=== PATIENT | female | born 1990 | race Hispanic/Latino ===

== ENCOUNTER 2016-09-26 11:24 | Inpatient (IN) | payer OTHER ==
[2016-09-26] VITALS (10 sets, daily range): BP systolic 123–145; BP diastolic 66–83
[~2016-09-26] VITALS: Ht 157.5 cm; Wt 90.0 kg
[2016-09-26] MEDS ORDERED: PRENTAB9 PO (11:41)
--- NOTE | 2016-09-26 14:02 | HPEPDOC ---
Obstetrical History & Physical General Date of Admission Sep 26, 2016 at 11:24 History of Present Illness 25 y/o at 41+0 by LMP and 20 wk US for IOL due to pending postdates. No LOF/VB. Pos FM. Irreg ctx's. Problem list: Velamentous cord insertion, had a 28 wk scan in addition to her anatomy scan that was normal Transferred here at 19 wks from [place]. 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 Past Medical History Medical History denies Surgical History: Denies/None Family History Significant Family History: No pertinent family hx Social History Marital Status: Family situation: Spouse/partner home * Smoker: non-smoker Alcohol: Denies Drugs: denies Abuse Violence Screening Have you been hit/kicked/slapp: No Have you been sexually assault: No Imunizations Tdap status: current Influenza Status: current Allergies Coded Allergies: No Known Allergies (Unverified , 09/26/16) Medications Scheduled Multivitamins/ ( 27-0.8 mg) 1 Tab Tab, 1 TAB PO DAILY Physical Examination Physical Examination GENERAL: Alert and oriented times three. ABDOMEN: Gravid and non-tender to touch. FETUS: Is vertex (VTX) by Laron and cnofirmed by limited TAUS. EXTREMITIES: No edema. Vital Signs/I&O Vital Signs Date Time Temp Pulse Resp B/P (MAP) Pulse Ox O2 Delivery O2 Flow Rate FiO2 09/26/16 11:52 98.7 120 18 145/82 (103) Laboratory Data 24H LABS Laboratory Tests 2 09/26/16 11:44: Serology Scanned Report Hepatitis B Testing Urine Culture: No Growth Pertinent Laboratoy Data Blood Type: A+ RBC Antibody Screen: Negative HIV: Negative Hepatitis B: Negative Hepatitis C: Unknown Rapid Plasma Reagin: Nonreactive Rubella: Nonreactive Varicella: Nonreactive Chlamydia/Gonorrhea: Negative Group B Streptococcus: Negative Quad Screen Test: Negative Cystic Fibrosis: Negative Glucose Tolerance Test: 161 (neg 3 hr GTT) Anatomy Ultrasound Placenta Location: Posterior Normal Anatomy: Yes Placenta Previa: No Vaginal Examination Dilation: Fingertip Effacement: 40-50% Station: -5 Cervical Consistency: Medium Cervical Position: Posterior Presentation: Cephalic presentation (by ultrasound) Assessment Variability: Moderate Accelerations: Positive Decelerations: None Tocometer Frequency: irregular Assessment/Plan Assessment 41 weeks. Baby not in the pelvis but vtx by US. Plan Admit and orient. Inside Sales Assistant and consent. Diet one meal and then clears Will start IOL with q4 hrs oral cytotec 50 mcg per SOP. Group B Streptococcus (GBS) neg Labs and intravenous (IV) per unit protocol. Counseled on Pitocin and induction of labor (IOL). Lactated Ringers (LR): 125 mL/hr. Anticipate normal spontaneous delivery () C-S as appropriate, knows her risk for this is higher than average Sessions SESSIONS,GABBY Shaw MD Sep 26, 2016 14:02
[2016-09-26] MEDS: miSOPROStol 50 MCG 1/2 TAB (S0191) PO PRN ×2 (14:53→19:35)
[2016-09-26 14:55] LABS: MEAN CORPUSCULAR HEMOGLOBIN 31.3 pg (27.0-33.0); MEAN CORPUSCULAR HGB CONC 34.3 g/dl (32.0-36.5); MEAN CORPUSCULAR VOLUME 91.5 fl (80.0-96.0); RED CELL DISTRIBUTION WIDTH 13.3 % (11.5-14.5); WHITE BLOOD COUNT 9.1 K/mm3 (4.0-10.0)
[2016-09-26] MEDS: LR 1,000 ML IV SCH ×2 (20:07→21:44)
[2016-09-27] VITALS (15 sets, daily range): BP systolic 117–139; BP diastolic 63–87
[2016-09-27] MEDS: miSOPROStol 50 MCG 1/2 TAB (S0191) PO PRN (00:03)
--- NOTE | 2016-09-27 03:23 | IPNPDOC ---
Text Note Date of Service The patient was seen on 09/27/16. NOTE No w s/p 3 doses cytotec, last at DC. NST is mostly Cat 2, mod isa and accels, rare isolated decel noted. Ctx's reg, sometimes 2-3 min long Cx 1/80/-2/vtx well applied. Cook balloon FB placed, 60 Ut/40 vag cc's a/p: Doing well. Recheck 1-2 hrs after FB falls out. Sessions VS,Kavita, I+O VSKavita I+O Laboratory Tests 09/26/16 14:42 Red Blood Count 3.63 L, Mean Corpuscular Volume 91.5, Mean Corpuscular Hemoglobin 31.3, Mean Corpuscular Hemoglobin Concent 34.3, Red Cell Distribution Width 13.3 Vital Signs Date Time Temp Pulse Resp B/P (MAP) Pulse Ox O2 Delivery O2 Flow Rate FiO2 09/27/16 02:15 97.5 93 16 120/65 (83) I&O- Last 24 Hours up to 6 AM 09/27/16 06:00 Intake Total 2014 ml Balance 2014 ml SESSIONS,GABBY Shaw MD Sep 27, 2016 03:23
[2016-09-27] MEDS: LR 1,000 ML IV SCH ×5 (05:44→21:10)
[2016-09-27] MEDS: PRENATAL VITAMIN TAB PO SCH (09:00)
[2016-09-27] MEDS ORDERED: BICITRA 30ML SOLN UDC As Ordered ONE (13:46)
[2016-09-27] MEDS ORDERED: ceFAZolin 2 GM/D5W 50 ML IV BAG (J0690) As Ordered ONE (13:46)
[2016-09-27] MEDS ORDERED: BICITRA 30ML SOLN UDC PO ONE (14:00)
--- NOTE | 2016-09-27 14:00 | IPNPDOC ---
Text Note Date of Service The patient was seen on 09/27/16. NOTE Paulina is a 25y/o at 41+1 by LMP and 20 wk US admitted for IOL secondary to late term gestation. After admission she was given 3 doses of cytotec. This morning, a cook burns catheter was placed. Patient was uncomfortable so catheter deflated this afternoon to assess for cervical dilation. At that time, there was no presenting part palpable, nor was the cervix able to be felt. So TAUS was performed which showed oblique lie. ASIA Coles and I attempted a gentle ECV to get the head from maternal LLQ to vertex over the cervix, but we were not able to. Re-check of cervix again confirmed no presenting part palpable and cervix could not be felt. At that time I counseled Paulina that continuing the induction with oblique lie would likely result in arrest of dilation and be unsuccessful on the better end of the spectrum, on the other end of the spectrum she could have ROM at some point with cord prolapse which would then require emergency . We discussed performing a planned PLTCS. After giving her time to discuss with her , she elected to proceed with . OR team notified. Bicitra and 2g IV anceph ordered. Consent form signed by patient and me. All questions answered to her apparent satisfaction. Dr. Otto Perez MD [place], I+O VSKavita, I+O Laboratory Tests 09/26/16 14:42 Red Blood Count 3.63 L, Mean Corpuscular Volume 91.5, Mean Corpuscular Hemoglobin 31.3, Mean Corpuscular Hemoglobin Concent 34.3, Red Cell Distribution Width 13.3 Vital Signs Date Time Temp Pulse Resp B/P (MAP) Pulse Ox O2 Delivery O2 Flow Rate FiO2 09/27/16 08:33 100 18 135/82 (99) 09/27/16 07:37 98.9 I&O- Last 24 Hours up to 6 AM 09/27/16 06:00 Intake Total 2515 ml Balance 2515 ml OTTO PEREZ MD Sep 27, 2016 14:00
[2016-09-27] MEDS ORDERED: MORPHINE PRES-FREE INJ 10 MG/10 ML VIAL (J2274) As Ordered ONE (14:01)
[2016-09-27] MEDS ORDERED: OXYTOCIN INJ 10 UNITS/ML VIAL (J2590) As Ordered ONE (14:01)
[2016-09-27] MEDS ORDERED: NALBUPHINE HCL 10 MG/ML AMP (J2300) IV PRN (14:18)
[2016-09-27] MEDS ORDERED: NALOXONE INJ 0.4 MG/1 ML VIAL (J2310) IV PRN ×2 (14:18)
[2016-09-27] MEDS ORDERED: METOCLOPRAMIDE INJ 10MG/2ML VIAL (J2765) IV PRN (14:18)
[2016-09-27] MEDS ORDERED: ONDANSETRON 4MG/2ML VIAL (J2405) IV PRN ×2 (14:18→16:00)
[2016-09-27] MEDS ORDERED: PHENYLephrine HCL 500 MCG/5 ML (100MCG/ML) SYRINGE (J2370) As Ordered ONE (15:05)
[2016-09-27] MEDS ORDERED: dexameTHASONE 4 MG/ML 1ML VIAL (J1100) As Ordered ONE (15:05)
[2016-09-27] MEDS ORDERED: KETOROLAC 60 MG/2 ML VIAL (J1885) As Ordered ONE (15:28)
[2016-09-27] MEDS ORDERED: ONDANSETRON 4MG/2ML VIAL (J2405) As Ordered ONE (15:28)
[2016-09-27] MEDS ORDERED: RHOGAM 300 MCG (1500 IU) INJ (J2790) IM SCH (16:00)
[2016-09-27] MEDS ORDERED: fentaNYL 100 MCG/2 ML INJECTION (J3010) IV PRN (16:00)
[2016-09-27] MEDS ORDERED: PERCOCET 5MG/325MG TAB PO PRN ×3 (16:00)
[2016-09-27] MEDS ORDERED: MEASLES,MUMPS,RUBELLA VACCINE INJ (MMR-II) (90707) SC SCH (16:00)
[2016-09-27] MEDS: DOCUSATE SODIUM 100 MG CAP PO SCH (21:09)
[2016-09-27] MEDS: KETOROLAC 30 MG/ML VIAL (J1885) IV SCH (21:09)
[2016-09-28 01:54] VITALS: BP 119/74
[2016-09-28] MEDS: KETOROLAC 30 MG/ML VIAL (J1885) IV SCH ×3 (04:32→15:38)
[2016-09-28 05:57] VITALS: BP 111/65
--- NOTE | 2016-09-28 06:36 | RO ---
DATE OF PROCEDURE: 09/27/2016 PREPROCEDURE DIAGNOSES: 1. Single intrauterine at 41 weeks 1 day, late term gestation. 2. malpresentation. POSTPROCEDURE DIAGNOSES: 1. Single intrauterine at 41 weeks 1 day, late term gestation. 2. malpresentation. SURGEON: Jeimy Perez MD GROUNDS PERSON: ASIA Coles. CLINICAL SERVICE: OB. MATERIAL FORWARDED TO THE LAB FOR EXAMINATION: None. INDICATION FOR OPERATION: Paulina is a 26-year-old 1, now para 1-0-0-1 who was undergoing induction of labor at 41 weeks 1 day for late term gestation. She had three doses of Cytotec placed and eventually had a Kumari catheter placed in her cervix. The Kumari catheter did not fall out on its own so it was deflated and removed. At that time, the presenting part was not palpable in the pelvis and the cervix was not palpable. An ultrasound was performed which showed an oblique lie. We gently tried to perform an ECV at bedside. The fetus tolerated it but the head could not be engaged in the pelvis and we could not break her water so she was counseled on the option of primary low transverse section for malpresentation which she desired at that time after discussing all risks, benefits and alternatives. DESCRIPTION OF FINDINGS: Clear amniotic fluid, male infant in oblique presentation with head in the maternal left lower quadrant. 8 and 9. Weight 8 pounds 6 ounces which is 3794 grams. Normal appearing uterus, tubes and ovaries. INFECTION CLASSIFICATION: 2. ESTIMATED BLOOD LOSS: 500 mL. IV FLUIDS: 1900 mL lactated ringers. URINE OUTPUT: 600 mL of clear yellow urine. OPERATION PERFORMED: Primary low transverse section. DESCRIPTION OF OPERATION: After obtaining informed consent, Paulina was taken to the operating room. Kumari catheter and bilateral sequential compression devices were placed after she received spinal anesthesia. She was prepped and draped in normal sterile fashion in dorsal supine position with a left lateral tilt. She received 2 grams of IV Ancef prophylactically. Time out was performed to confirm patient name, date of , procedure and indication. Surgical team , nursing staff, and anesthesia were all in agreement. Her spinal anesthesia was found to be adequate using an Allis clamp. A Pfannenstiel skin incision was made with a scalpel and carried through to the underlying layer of fascia. The fascia was incised in the midline and the incision was extended laterally with Kraus scissors. Superior and inferior aspects of the facial incision were grasped with Morena clamps, elevated and the underlying rectus muscles were dissected off bluntly and sharply. Peritoneum was entered digitally and the rectus muscles were in the midline. Peritoneal incision was extended superiorly and inferiorly with good visualization of the bladder. Bladder blade was inserted. The vesicouterine peritoneum was identified, grasped with pickups and entered sharply with Metzenbaum scissors. The incision was extended laterally and the bladder flap was created digitally. Bladder blade was re-inserted and the lower uterine segment was scored in a transverse fashion with a scalpel. Uterus was entered bluntly and the incision was extended with traction. Bladder blade was removed and the infant's head was elevated to the level of the incision. Fundal pressure was applied and the head was delivered atraumatically in the occiput transverse position. Anterior shoulder, posterior shoulder and corpus were delivered without difficulty. Nose and mouth were suctioned with bulb suction. Cord was clamped times two and cut. The was handed off to the awaiting nursing team. Placenta was removed with traction on the cord and uterine massage. The umbilical cord had previously been noted to have velamentous insertion and the insertion point began to tear with removal but the placenta was removed intact. The uterus was exteriorized and cleared of all clot and debris. Uterine incision was repaired with #0 Vicryl suture in a running locking fashion. A second layer of #0 Monocryl suture was used to close the hysterotomy incision in an imbricating fashion. Uterine incision was inspected. Hemostasis noted. Posterior cul-de-sac was irrigated and the uterus was returned to the abdomen. Gutters were cleared of all clot with hemostasis noted. Fascia was reapproximated using #0 Vicryl suture in a running fashion. Subcutaneous tissue was copiously irrigated. Lele's fascia was reapproximated using #3-0 Vicryl suture in a running fashion in two layers. Skin edges were reapproximated using three inverted interrupted stitches using #3-0 Vicryl suture followed by a running subcuticular stitch using #4-0 Monocryl suture. Incision was cleaned using a wet lap and dried with a dry lap. Steri-Strips were applied in the usual fashion perpendicular to Pfannenstiel incision. Two strips of telfa were layered on top of the Steri-Strips followed by a dry sterile towel. Surgical drapes were removed and sterile towel was removed. Pressure dressing was applied over the entire surgical incision. Vagina was cleared of all blood clots without active bleeding noted. The fundus was firm at U -1 cm. All counts were correct times two. Procedure was without complication. The patient tolerated the procedure well. She was taken to the recovery room on labor and delivery in stable condition. ALF
[2016-09-28 07:42] LABS: MEAN CORPUSCULAR HEMOGLOBIN 30.8 pg (27.0-33.0); MEAN CORPUSCULAR HGB CONC 33.7 g/dl (32.0-36.5); MEAN CORPUSCULAR VOLUME 91.5 fl (80.0-96.0); RED CELL DISTRIBUTION WIDTH 13.5 % (11.5-14.5); WHITE BLOOD COUNT 10.5 K/mm3 (4.0-10.0)
[2016-09-28] MEDS: DOCUSATE SODIUM 100 MG CAP PO SCH ×2 (07:44→21:35)
[2016-09-28] MEDS: PRENATAL VITAMIN TAB PO SCH (07:44)
--- NOTE | 2016-09-28 08:08 | IPNPDOC ---
Progress Note Date of Service The patient was seen on 09/28/16 at 08:01. Progress Note Paulina is a 26yo [id number] who was found to have oblique malpresentation when undergoing induction of labor at 41w1d for LTG on 09/27 and underwent uncomplicated PLTCS. Since surgery she is doing well, reports she has "no pain". Lochia minimal. Breast feeding without problem. She has ambulated since surgery at 1500 yesterday, has not yet showered, burns is still in place, tolerating regular diet. Denies f/c/n/v/SOB/CP. Vitals wnl, afebrile General: WDWN, resting comfortably Abdomen: soft, appropriately tender, non-distended, pressure dressing in place is clean and dry covering pfannensteil incision Extremities: 1+ pitting edema of BLE, SCDs on and functioning burns in place draining clear yellow urine Labs: / H/H 11.4/33.2 6/8 H/H 8.8/26.1 Assessment: Paulina is a 26yo [id number] who was found to have oblique malpresentation when undergoing induction of labor at 41w1d for LTG on 09/27 and underwent uncomplicated PLTCS. Vitals wnl, afebrile, exam benign. Appropriate UOP and change in H/H. Hemodynamically stable with no e/o infection. Plan: -Routine post-op care -Burns out today at 1500, due to void within 6hr -percocet and motrin prn pain -regular diet -SCDs while in bed Dr. Otto Perez MD VS, I&O, 24H, Fishbone Vital Signs/I&O Vital Signs Date Time Temp Pulse Resp B/P (MAP) Pulse Ox O2 Delivery O2 Flow Rate FiO2 09/28/16 05:57 98.3 85 18 111/65 (80) 98 Room Air I&O- Last 24 Hours up to 6 AM 09/28/16 06:00 Intake Total 3762 ml Output Total 3100 ml Balance 662 ml Laboratory Data CBC/BMP Laboratory Tests 09/28/16 07:20 Red Blood Count 2.85 L, Mean Corpuscular Volume 91.5, Mean Corpuscular Hemoglobin 30.8, Mean Corpuscular Hemoglobin Concent 33.7, Red Cell Distribution Width 13.5 OTTO PEREZ MD Sep 28, 2016 08:08
[2016-09-28 10:00] VITALS: BP 116/76
[2016-09-28 14:01] VITALS: BP 103/57
[2016-09-28 18:09] VITALS: BP 127/59
[2016-09-29] MEDS: IBUPROFEN 800 MG TAB PO SCH ×4 (00:23→23:35)
[2016-09-29 05:41] VITALS: BP 141/74
[2016-09-29] MEDS: DOCUSATE SODIUM 100 MG CAP PO SCH ×2 (07:30→20:36)
[2016-09-29] MEDS: PRENATAL VITAMIN TAB PO SCH (07:30)
--- NOTE | 2016-09-29 17:00 | IPNPDOC ---
Progress Note Date of Service The patient was seen on 09/29/16 at 16:56. Progress Note Paulina is a 26yo [id number] doing well on POD 2 s/p uncomplicated PLTCS. She was found to have oblique malpresentation when undergoing induction of labor at 41w1d for LTG on 09/27. She reports minimal pain. Lochia minimal. Breast feeding without problems. Ambulating easily, no problems with voiding, tolerating regular diet. Denies f/c/n/v/SOB/CP. Vitals wnl, afebrile General: WDWN, resting comfortably Cardiac: S1S2 present, no murmurs Lungs: CTAB Abdomen: soft, appropriately tender, non-distended, pfannensteil incision is clean/dry/intact with no erythema/induration/dehiscence Extremities: 1+ pitting edema of BLE Labs: 6/7 H/H 11.4/33.2 6/8 H/H 8.8/26.1 Assessment: Paulina is a 26yo [id number] doing well on POD 2 s/p uncomplicated PLTCS. She was found to have oblique malpresentation when undergoing induction of labor at 41w1d for LTG on 09/27. Vitals wnl, afebrile, exam benign. Appropriate change in H/H. Hemodynamically stable with no e/o infection. Plan: -Routine post-op care -percocet and motrin prn pain -regular diet -encourage , ambulation and use of IS -possible discharge home tomorrow Dr. Otto Perez MD VS, I&O, 24H, Fishbone Vital Signs/I&O Vital Signs Date Time Temp Pulse Resp B/P (MAP) Pulse Ox O2 Delivery O2 Flow Rate FiO2 09/29/16 05:41 97.4 89 16 141/74 (96) 09/28/16 14:01 99 09/28/16 05:57 Room Air I&O- Last 24 Hours up to 6 AM 09/29/16 06:00 Intake Total 1620 ml Output Total 2500 ml Balance -880 ml OTTO PEREZ MD Sep 29, 2016 17:00
[2016-09-29 18:11] VITALS: BP 116/66
[2016-09-30 06:09] VITALS: BP 123/76
[2016-09-30] MEDS: PRENATAL VITAMIN TAB PO SCH (08:22)
[2016-09-30] MEDS: DOCUSATE SODIUM 100 MG CAP PO SCH (08:22)
[2016-09-30] MEDS: IBUPROFEN 800 MG TAB PO SCH (08:23)
[2016-09-30] MEDS ORDERED: OXYC1TAB23 PO (10:54)
[2016-09-30] MEDS ORDERED: IBUP-1114 PO (10:54)
--- NOTE | 2016-09-30 11:01 | IPNPDOC ---
Progress Note Date of Service The patient was seen on 09/30/16 at 10:59. Progress Note Paulina is a 26yo [id number] doing well on POD 3 s/p uncomplicated PLTCS. She was found to have oblique malpresentation when undergoing induction of labor at 41w1d for LTG on 09/27. She reports minimal pain. Lochia minimal. Breast feeding without problems. Ambulating easily, no problems with voiding, tolerating regular diet. Denies f/c/n/v/SOB/CP. Vitals wnl, afebrile General: WDWN, sitting comfortably in chair Abdomen: soft, appropriately tender, non-distended, pfannensteil incision is clean/dry/intact with no erythema/induration/dehiscence Extremities: 1+ pitting edema of BLE Labs: 6/7 H/H 11.4/33.2 6/8 H/H 8.8/26.1 Assessment: Paulina is a 26yo [id number] doing well on POD 3 s/p uncomplicated PLTCS. She was found to have oblique malpresentation when undergoing induction of labor at 41w1d for LTG on 09/27. Vitals wnl, afebrile, exam benign. Appropriate change in H/H. Hemodynamically stable with no e/o infection. Plan: -Discharge to home today with follow-up in 2 weeks for incision check -percocet and motrin prn pain -Discussed return precautions at length: fevers/chills, increasing abdominal pain or vaginal bleeding, evidence of mastitis or wound infection Dr. Otto Perez MD VS, I&O, 24H, Fishbone Vital Signs/I&O Vital Signs Date Time Temp Pulse Resp B/P (MAP) Pulse Ox O2 Delivery O2 Flow Rate FiO2 09/30/16 06:09 97.1 71 16 123/76 (92) 09/28/16 14:01 99 09/28/16 05:57 Room Air OTTO PEREZ MD Sep 30, 2016 11:01
--- NOTE | 2016-09-30 11:04 | DS.PDOC ---
Discharge Summary General Date of Admission Sep 26, 2016 at 11:24 Date of Discharge Sep 30, 2016 Attending Physician: OTTO PEREZ MD Discharge Summary PROCEDURES PERFORMED DURING STAY: Primary low transverse section ADMITTING DIAGNOSES: 1. Induction of labor for late term gestation DISCHARGE DIAGNOSES: 1. Induction of labor for late term gestation 2. malpresentation COMPLICATIONS/CHIEF COMPLAINT: Induction. HISTORY OF PRESENT ILLNESS/HOSPITAL COURSE: Paulina is a 26yo [id number] doing well on POD 3 s/p uncomplicated PLTCS. She was found to have oblique malpresentation when undergoing induction of labor at 41w1d for LTG on 09/27. Benign post-/post-operative course. Vitals wnl, afebrile, exam benign. Appropriate change in H/H. Hemodynamically stable with no e/o infection. DISCHARGE MEDICATIONS: motrin, percocet, miralax, lanolin ALLERGIES: Please see below. PHYSICAL EXAMINATION ON DISCHARGE: Vitals wnl, afebrile General: WDWN, sitting comfortably in chair Abdomen: soft, appropriately tender, non-distended, pfannensteil incision is clean/dry/intact with no erythema/induration/dehiscence Extremities: 1+ pitting edema of BLE LABORATORY DATA: 09/27 H/H 11.4/33.2 09/28 H/H 8.8/26.1 ACTIVITY: As tolerated, vaginal rest for 6 weeks, no heavy lifting greater than weight of baby DIET: regular DISPOSITION: home DISCHARGE PLAN/INSTRUCTIONS: -Discharge to home today with follow-up in 2 weeks for incision check -percocet and motrin prn pain -Discussed return precautions at length: fevers/chills, increasing abdominal pain or vaginal bleeding, evidence of mastitis or wound infection DISCHARGE CONDITION: Stable TIME SPENT ON DISCHARGE: Greater than [address] Otto Perez MD Vital Signs/I&Os Vital Signs Date Time Temp Pulse Resp B/P (MAP) Pulse Ox O2 Delivery O2 Flow Rate FiO2 09/30/16 06:09 97.1 71 16 123/76 (92) 09/28/16 14:01 99 09/28/16 05:57 Room Air Discharge Medications Scheduled Multivitamins/ ( 27-0.8 mg) 1 Tab Tab, 1 TAB PO DAILY, (Reported ) Scheduled PRN Ibuprofen (Ibuprofen) 400 Mg Tab, 800 MG PO Q8H PRN for PAIN, (Reported) Oxycodone/Acetaminophen (Oxycodone/Acetaminophen 5-325 mg) 1 Tab Tab, 1 TAB PO Q4HP PRN for PAIN, (Reported) TAKE 1 PILL FOR PAIN OF 1-4 ON PAIN SCALE. DO NOT TAKE TYLENOL WHEN TAKING PERCOCET. Oxycodone/Acetaminophen (Oxycodone/Acetaminophen 5-325 mg) 1 Tab Tab, 2 TAB PO Q4HP PRN for PAIN, (Reported) TAKE 2 PILLS FOR PAIN OF 5-10 ON PAIN SCALE. DO NOT TAKE TYLENOL WHEN TAKING PERCOCET. Allergies Coded Allergies: No Known Allergies (Unverified , 09/26/16) OTTO PEREZ MD Sep 30, 2016 11:04
== END 2016-09-30 11:35 | disposition home or self-care (01) | DRG 766 ==
LOC: M LDI 11:24 → M OBS 09-27 17:07
PROVIDERS: ADMIT Obstetrics & Gynecology; ATTEND Obstetrics & Gynecology
PROC: 3E0DXGC Introduction of Other Therapeutic Substance into Mouth and Pharynx, External Approach (ICD-10-PCS; 2016-09-26)
PROC: 10D00Z1 Extraction of Products of Conception, Low, Open Approach (ICD-10-PCS; principal; 2016-09-27 14:10)
DX: O48.0 Post-term pregnancy (principal); Z37.0 Single live birth; Z3A.41 41 weeks gestation of pregnancy; O43.123 Velamentous insertion of umbilical cord, third trimester; Z79.899 Other long term (current) drug therapy; O32.2XX0 Maternal care for transverse and oblique lie, not applicable or unspecified

== ENCOUNTER 2016-12-08 10:09 | Day surgery (SDC) | payer OTHER ==
[~2016-12-08] VITALS: Ht 157.5 cm; Wt 79.8 kg
[~2016-12-08 10:09] MED LIST: IBUP-1114 PO; OXYC1TAB23 PO; PRENTAB9 PO
[2016-12-08] MEDS ORDERED: LR 1,000 ML IV ONE (10:15)
[2016-12-08 10:32] LABS: CONTROL LINE UCG INT CTR LINE PRESENT
[2016-12-08] MEDS ORDERED: LIDOCAINE 2% INJ 100 MG/5 ML SDV (FOR ANES.) As Ordered ONE (10:47)
[2016-12-08] MEDS ORDERED: PROPOFOL 200 MG/20 ML VIAL As Ordered ONE (10:47)
[2016-12-08] MEDS ORDERED: fentaNYL 100 MCG/2 ML INJECTION (J3010) As Ordered ONE (10:47)
[2016-12-08] MEDS ORDERED: GLYCOPYRROLATE INJ 0.2 MG/ML 2 ML VIAL As Ordered ONE (10:47)
[2016-12-08] MEDS ORDERED: ONDANSETRON 4MG/2ML VIAL (J2405) As Ordered ONE ×2 (10:47→16:18)
[2016-12-08] MEDS ORDERED: NEOSTIGMINE 1MG/ML 5 ML SYRINGE (J2710) As Ordered ONE (10:47)
[2016-12-08] MEDS ORDERED: ROCURONIUM BROMIDE 50 MG/5 ML VIAL/SYRINGE As Ordered ONE (10:47)
[2016-12-08] MEDS ORDERED: MIDAZOLAM INJ 2 MG/2 ML VIAL (J2250) As Ordered ONE (10:47)
[2016-12-08] MEDS ORDERED: BUPIVACAINE/EPIN 0.25% 30 ML VIAL As Ordered ONE (10:48)
[2016-12-08] MEDS ORDERED: HYDROmorphone HCL 2 MG/ML 1ML VIAL (J1170) As Ordered ONE (12:11)
[2016-12-08] MEDS ORDERED: NORCO, ANEXSIA 5/325MG TABLET (HYDROcodone/ACETAMINOPHEN) PO PRN (13:45)
[2016-12-08] MEDS ORDERED: LR 1,000 ML IV SCH (13:45)
[2016-12-08] MEDS ORDERED: HYDROmorphone HCL 1 MG/ML SYRINGE (J1170) IV PRN (13:45)
[2016-12-08] MEDS ORDERED: PERCOCET 5MG/325MG TAB PO PRN (13:45)
[2016-12-08] MEDS ORDERED: ONDANSETRON 4MG/2ML VIAL (J2405) IV PRN (13:45)
[2016-12-08] MEDS: fentaNYL 100 MCG/2 ML INJECTION (J3010) IV PRN ×2 (13:45→13:50)
[2016-12-08 19:35] VITALS: BP 103/73
--- NOTE | 2016-12-11 06:35 | RO ---
DATE OF PROCEDURE: 12/08/2016 PREOPERATIVE DIAGNOSIS: Symptomatic cholelithiasis. POSTOPERATIVE DIAGNOSIS: Symptomatic cholelithiasis. PROCEDURE: Laparoscopic cholecystectomy. SURGEON: Dr. Adria Valverde TITLE SEARCH MANAGER: Dr. Painter ANESTHESIA: General: ESTIMATED BLOOD LOSS: 5. COMPLICATIONS: None. INDICATIONS FOR PROCEDURE: The patient is a 26-year-old female who presents with persistent right upper quadrant abdominal pain and found have symptomatic cholelithiasis. Recommendation was to proceed with laparoscopic possible open cholecystectomy. The risks and benefits of the procedure, not limited to, but including bleeding, infection, hernia formation, damage to surrounding structures, and need for further surgery were discussed in detail with the patient. Informed consent was obtained and the procedure was planned. PROCEDURE: The patient was brought to the operating room six after sufficient sedation and the abdomen was sterilely prepped and draped. Next, a time out was done to confirm proper patient and proper procedure. Following that, a stab incision made in the left lower quadrant at Moreno's point. A Veress needle was inserted and the abdomen was insufflated to 15 mmHg. Next, a 5 mm infraumbilical incision was made. Incision was carried down to the level of the fascia. A 5 mm OptiView port was used to gain access to the abdomen. Once the abdomen was entered, the Veress needle site was examined, there were no signs of injury. The Veress needle was then removed. The fundus of the gallbladder was then grasped and elevated up towards the right shoulder. Using a combination of blunt and sharp dissection, the cystic duct and cystic artery were both carefully dissected until they were both clearly identified. They were both then doubly clipped and cut. The gallbladder was then removed from the gallbladder fossa using electrocautery. The gallbladder was then removed through the 10 mm Endo Catch bag at the subxiphoid port site. Next, the right upper quadrant was examined. No signs of any bleeding. The abdomen was desufflated. The skin incisions were closed with #4-0 Vicryl subcuticular sutures. The abdomen was cleaned and dried. Steri-Strips, 4x4 and tape were applied, thus ending the procedure.
== END 2016-12-08 19:40 | disposition home or self-care (01) ==
LOC: M SDC 10:09
PROVIDERS: ATTEND Surgery
DX: K80.10 Calculus of gallbladder with chronic cholecystitis without obstruction (principal); D64.9 Anemia, unspecified
CPT/HCPCS: 47562; 84703; 88304; J0690; J1170; J2250; J2405; J2710; J3010